=== PATIENT | female | born 1985 | race Caucasian/White ===

== ENCOUNTER 2018-01-07 10:11 | Emergency (ER) | payer OTHER, BC | END 2018-01-07 12:00 | disposition home or self-care (01) | LOC: M ED 10:11 | DX: B30.9 Viral conjunctivitis, unspecified (principal); H05.223 Edema of bilateral orbit; Z88.6 Allergy status to analgesic agent; Z88.1 Allergy status to other antibiotic agents; Z91.018 Allergy to other foods; Z79.899 Other long term (current) drug therapy; Z79.2 Long term (current) use of antibiotics; Z79.52 Long term (current) use of systemic steroids | CPT/HCPCS: 99283 ==